=== PATIENT | female | born 1965 ===

== ENCOUNTER 2021-04-05 05:43 | Observation (INO) ==
[2021-04-05] MEDS ORDERED: Lactated Ringers 1000 ml BAG 1,000 ML IV SCH (06:00)
[2021-04-05] MEDS ORDERED: Buffered Lidocaine 1% SYRIN 1 ml INTRADERM ONE ×2 (06:00→06:06)
[2021-04-05] MEDS ORDERED: ceFAZolin 2 GM in NS PREMIX 2 GM/100 ML BAG IVPB ONE (06:06)
[2021-04-05] MEDS ORDERED: Lidocaine 1% MPF 5 ML VIAL ONE (06:15)
[2021-04-05] MEDS ORDERED: ROPIVACAINE 5 MG/ML 30 ML BTL (0.5%) ONE (06:15)
[2021-04-05] MEDS ORDERED: BUPIVACAINE **LIPOSOME/PF 13.3 MG/ML (266MG/ 20ML) VIAL (RESTRICTED) INFIL ONE ×2 (07:00→08:00)
[2021-04-05] MEDS ORDERED: Midazolam 5 mg/5 ml VIAL 1 mg/ml 5 ml VIAL (5 mg) ONE (07:22)
[2021-04-05] MEDS ORDERED: Tranexamic Acid 1,000 MG/10 ML SDV ONE (07:23)
[2021-04-05] MEDS ORDERED: Bupivacaine 0.25% EPI 200,000 30 ML SDV ONE (07:23)
[2021-04-05] MEDS ORDERED: Bupivacaine 0.25% SDV 30 ML ONE ×2 (07:23→07:38)
[2021-04-05] MEDS ORDERED: ceFAZolin 1 GM ADVAN 1 GM ADDV.VIAL IVPB ONE (07:32)
[2021-04-05] MEDS ORDERED: Ketamine HCL 50 mg/ml 10 ml VIAL (500 MG) ONE (08:14)
[2021-04-05] MEDS ORDERED: Propofol 10 MG/ML 20 ML BTL ONE ×4 (08:47→10:54)
[2021-04-05] MEDS ORDERED: Ondansetron 4 mg VIAL 2 MG/ML 2 ml VIAL ONE (08:47)
[2021-04-05] MEDS ORDERED: Lidocaine 2% PF 10 ML AMP ONE ×2 (08:47→10:46)
[2021-04-05] MEDS ORDERED: Phenylephrine 40 mcg/mL 10mL (400mcg) SYRINGE ONE (08:47)
[2021-04-05] MEDS ORDERED: EPHEDrine (Pressors) 50 MG/ML VIAL ONE (09:48)
[2021-04-05] MEDS ORDERED: DiMENhydriNATE IV 50 mg/ml 1 ml VIAL IV PUSH PRN (10:37)
[2021-04-05] MEDS ORDERED: diPHENhydraMINE 25 mg TAB PO PRN (11:39)
[2021-04-05] MEDS ORDERED: Ondansetron 4 mg VIAL 2 MG/ML 2 ml VIAL IV PRN (11:39)
[2021-04-05] MEDS ORDERED: Lactulose 30 ml UDC PO PRN (11:39)
[2021-04-05] MEDS ORDERED: Ondansetron ODT 4 mg TAB 4 MG TAB PO PRN (11:39)
[2021-04-05] MEDS ORDERED: Magnesium Hydroxide LIQ 30 ML UDC PO PRN (11:39)
[2021-04-05] MEDS ORDERED: diPHENhydraMINE IV 50 MG/ML 1 ml VIAL (BENADRYL) IV PRN (11:39)
[2021-04-05] MEDS ORDERED: DiMENhydriNATE IV 50 mg/ml 1 ml VIAL ONE (11:42)
[2021-04-05] MEDS ORDERED: diPHENhydraMINE 25 mg TAB ONE (13:59)
[2021-04-05] MEDS: Lactated Ringers 1000 ml BAG 1,000 ML IV SCH (14:30)
[2021-04-05] MEDS ORDERED: Morphine 2 MG/ML SYRINGE ONE (15:04)
[2021-04-05] MEDS: Morphine 2 MG/ML SYRINGE IV PRN ×4 (15:05→21:44)
[2021-04-05] MEDS: ceFAZolin 1 GM ADVAN 1 GM in NS 0.9% 50 ML 50 ML IVPB SCH (16:09)
[2021-04-05] MEDS ORDERED: Senna TAB 8.6 mg TAB PO PRN (17:41)
[2021-04-05] MEDS: Magnesium Hydroxide LIQ 30 ML UDC PO SCH (21:44)
[2021-04-06] MEDS: Morphine 2 MG/ML SYRINGE IV PRN ×4 (00:30→08:27)
[2021-04-06] MEDS: ceFAZolin 1 GM ADVAN 1 GM in NS 0.9% 50 ML 50 ML IVPB SCH ×2 (00:30→08:24)
[2021-04-06] MEDS: Morphine ER 30 mg TAB ** extended release PO SCH ×3 (01:37→17:15)
[2021-04-06] MEDS: Lactated Ringers 1000 ml BAG 1,000 ML IV SCH (03:52)
[2021-04-06 06:50] LABS: Hematocrit 32 % (35-47); Hemoglobin 10.6 g/dL (12.0-16.0); Mean Platelet Volume 8.8 fL (7.4-10.4); Platelet Count 229 10^3/uL (150-450)
[2021-04-06 07:11] LABS: Calcium 8.1 mg/dL (8.6-10.3); EGFR African American 163.1 (>60); EGFR Non-African American 134.8 (>60); Potassium 3.7 mmol/L (3.5-5.0)
[2021-04-06] MEDS: Magnesium Hydroxide LIQ 30 ML UDC PO SCH ×2 (08:24→21:56)
[2021-04-06] MEDS: Vitamin THERAPEUTIC TAB PO SCH (08:25)
[2021-04-07] MEDS: Morphine ER 30 mg TAB ** extended release PO SCH ×2 (06:04→17:35)
[2021-04-07 07:21] LABS: Hematocrit 32 % (35-47); Hemoglobin 10.9 g/dL (12.0-16.0); Mean Platelet Volume 8.4 fL (7.4-10.4); Platelet Count 225 10^3/uL (150-450)
[2021-04-07] MEDS: Vitamin THERAPEUTIC TAB PO SCH (10:19)
[2021-04-07] MEDS: Magnesium Hydroxide LIQ 30 ML UDC PO SCH ×2 (10:19→21:40)
[2021-04-08] MEDS: Morphine ER 30 mg TAB ** extended release PO SCH (05:45)
[2021-04-08 06:58] LABS: Hematocrit 31 % (35-47); Hemoglobin 10.4 g/dL (12.0-16.0); Mean Platelet Volume 8.7 fL (7.4-10.4); Platelet Count 238 10^3/uL (150-450)
[2021-04-08] MEDS: Vitamin THERAPEUTIC TAB PO SCH (09:55)
[2021-04-08] MEDS: Magnesium Hydroxide LIQ 30 ML UDC PO SCH (10:07)
[2021-04-08 12:36] VITALS: BP 110/63
== END 2021-04-08 14:47 | disposition swing bed (61) ==
LOC: OR 05:43 → SSU 05:43
PROVIDERS: ADMIT Orthopaedic Surgery Sports Medicine; ATTEND Orthopaedic Surgery Sports Medicine

== ENCOUNTER 2021-04-08 14:34 | Inpatient (IN) ==
[2021-04-08] MEDS ORDERED: Magnesium Hydroxide LIQ 30 ML UDC PO PRN (14:41)
[2021-04-08] MEDS ORDERED: diPHENhydraMINE 25 mg TAB PO PRN (14:41)
[2021-04-08] MEDS ORDERED: Ondansetron 4 mg VIAL 2 MG/ML 2 ml VIAL IV PRN (14:41)
[2021-04-08] MEDS ORDERED: diPHENhydraMINE IV 50 MG/ML 1 ml VIAL (BENADRYL) IV PRN (14:41)
[2021-04-08] MEDS ORDERED: Polyethylene Glycol 3350 17 GM PACKET PO PRN (14:41)
[2021-04-08] MEDS ORDERED: Senna TAB 8.6 mg TAB PO PRN (14:41)
[2021-04-08] MEDS ORDERED: Morphine 10 MG/ML VIAL (1 ml) IV PRN (14:41)
[2021-04-08] MEDS ORDERED: Lactated Ringers 1000 ml BAG 1,000 ML IV SCH (15:00)
[2021-04-08 15:51] LABS: ABS Basophils 0.1 10^3/ul (0-0.2); ABS Eosinophils 0.9 10^3/ul (0-0.6); ABS Lymphocytes 2.4 10^3/ul (1.0-4.8); Hematocrit 34 % (35-47); Hemoglobin 11.3 g/dL (12.0-16.0); Lymphocyte % 20.8 %; Mean Corpuscular HGB Conc 33 g/dL (31-36); Mean Corpuscular Hemoglobin 32 pg (27-31); Mean Corpuscular Volume 95 fL (80-97); Mean Platelet Volume 8.6 fL (7.4-10.4); Platelet Count 280 10^3/uL (150-450); Red Blood Count 3.57 10^6 /uL (3.70-4.87); Red Cell Distribution Width 14 % (10-15); White Blood Count 11.4 10^3/uL (3.5-10.8)
[2021-04-08] MEDS: Morphine ER 30 mg TAB ** extended release PO SCH (17:42)
[2021-04-08] MEDS: Magnesium Hydroxide LIQ 30 ML UDC PO SCH (22:26)
[2021-04-08] MEDS: Lactulose 30 ml UDC PO SCH (22:26)
[2021-04-09] MEDS: Morphine ER 30 mg TAB ** extended release PO SCH ×2 (05:23→18:05)
[2021-04-09] MEDS: Magnesium Hydroxide LIQ 30 ML UDC PO SCH ×2 (08:45→20:52)
[2021-04-09] MEDS: Lactulose 30 ml UDC PO SCH ×3 (08:45→20:52)
[2021-04-09] MEDS ORDERED: FLUOXETINE PO SCH (09:00)
[2021-04-09] MEDS ORDERED: COVID-19 VACCINE, MRNA(MODERNA)/PF 100 MCG/0.5 ML IM ONE (16:00)
[2021-04-10] MEDS: Morphine ER 30 mg TAB ** extended release PO SCH ×2 (05:32→18:14)
[2021-04-10] MEDS: Magnesium Hydroxide LIQ 30 ML UDC PO SCH ×2 (09:18→20:39)
[2021-04-10] MEDS: Lactulose 30 ml UDC PO SCH ×3 (09:18→20:40)
[2021-04-11] MEDS: Morphine ER 30 mg TAB ** extended release PO SCH (05:48)
[2021-04-11] MEDS: Magnesium Hydroxide LIQ 30 ML UDC PO SCH (09:23)
[2021-04-11] MEDS: Lactulose 30 ml UDC PO SCH ×2 (09:23→14:36)
[2021-04-11 16:06] VITALS: BP 122/74
== END 2021-04-11 16:55 | disposition home health service (06) | DRG 302 ==
LOC: SSU 14:56
PROVIDERS: ADMIT Orthopaedic Surgery Sports Medicine; ATTEND Orthopaedic Surgery Sports Medicine